=== PATIENT | male | born 1990 | race Caucasian/White ===

== ENCOUNTER 2020-08-23 13:18 | Emergency (ER) | payer MEDICAID ==
[~2020-08-23] VITALS: Ht 152 cm; Wt 95.0 kg
[~2020-08-23 13:18] MED LIST: AMOX500T2 PO; ARPZ10T; BENZ100C18 PO; BNZT1T PO; CHLO1TAB79 PO; DIVA500T7 PO; DOCU-250 PO; DVL500TEC PO; ESCT10T; FLUP10TA PO; HALO100V4 IM; HYDR-4226 PO; LEVO500T69 PO; LITH300C PO; MECL25TA56 PO; MELA1TAB10 PO; ONDA8TAB9 PO; PRD20T PO; QUET300T44 PO; QUET50TA21 PO; RSP2T PO; RSP50S IM; RT-ALBUINH IH; SULF1TAB35 PO; TRZ50T; ZLP10T PO
--- NOTE | 2020-08-23 13:53 | ED General ---
General Chief Complaint: General Problems/Pain Stated Complaint: DIZZINESS,COUGH Nursing Triage Note: PT ARRIVES TO THE ER WITH C/O COUGH, SORE THROAT AND DIZZINESS. NO FEVER Nursing Sepsis Screen: No Definite Risk Source of Information: Patient Exam Limitations: No Limitations History of Present Illness Date Seen by Provider: Aug 23, 2020 Time Seen by Provider: 13:45 Initial Comments Patient is a 30-year-old male who presents to the emergency room today with a chief complaint of cough, mild dizziness, congestion. Symptoms have been going on for about 2 weeks. Patient states that he has not taken any medications for his symptoms. He does smoke 1 cigarette a day. He denies any loss of taste or smell. His cough is nonproductive. He is not having a runny nose or sore throat. No nausea vomiting no complaints. The patient states that the reason he came to the emergency room today is because he got a ride to the ER today by his grandmother. All other ROS reviewed and negative except as stated Timing/Duration: Other (2 week) Severity: Mild Allergies and Home Medications Allergies Coded Allergies: NKANo Known Allergies (Verified Allergy, Unknown, 10/22/06) No Known Drug Allergies (Unverified , 05/05/09) Home Medications Albuterol Sulfate 8.5 Gm Hfa.aer.ad, 8.5 GM IH Q4H PRN for WHEEZING Prescribed by: DEL HAMMER on 10/17/15 1245 Amoxicillin 500 Mg Tablet, 500 MG PO TID Do not fill before 10/19/14 and only if symptoms worsen Prescribed by: DEL HAMMER on 10/17/15 1245 Benztropine Mesylate 1 Mg Tab, 1 MG PO DAILY, (Reported) Chlorphen/Phenyleph/Ibuprofen 1 Each Tablet, 1 EACH PO Q4H PRN for CONGESTION Prescribed by: DEL HAMMER on 10/17/15 1245 Docusate Sodium 100 Mg Capsule, 100 MG PO DAILY, (Reported) Haloperidol Decanoate 100 Mg/1 Ml Vial, 100 MG IM EVERY 28 DAYS, (Reported) Hydrocodone/Acetaminophen 1 Each Tablet, 1 EACH PO Q4H PRN for PAIN Do not fill unless Bactrim is also filled Prescribed by: DEL HAMMER on 11/01/15 1742 [place] Carbonate 300 Mg Capsule, 600 MG PO BID, (Reported) TAKES 2 (300MG) CAPSULES Melatonin/Pyridoxine 1 Each Tablet, 6 MG PO HS, (Reported) TAKES 2 (3MG) TABLETS Ondansetron 8 Mg Tab.rapdis, 8 MG PO Q6H PRN for NAUSEA/VOMITING Prescribed by: DEL HAMMER on 12/19/15 1159 Quetiapine Fumarate 300 Mg Tablet, 600 MG PO HS, (Reported) TAKES 2 (300MG) TABLETS Sulfamethoxazole/Trimethoprim 1 Each Tablet, 1 EACH PO BID Prescribed by: DEL HAMMER on 11/01/15 0382 Patient Home Medication List Home Medication List Reviewed: Yes (IVC) Review of Systems Review of Systems Constitutional: no symptoms reported ( people that were slowing movies in the) EENTM: nose congestion Respiratory: cough; No hemoptysis, No phlegm, No short of breath, No stridor, No wheezing Cardiovascular: no symptoms reported Gastrointestinal: no symptoms reported Genitourinary: no symptoms reported Musculoskeletal: no symptoms reported Skin: no symptoms reported Psychiatric/Neurological: No Symptoms Reported All Other Systems Reviewed Negative Unless Noted: Yes Past Djdgces-Ogmjei-Fawyst Hx Patient Social History Recent Foreign Travel: No Contact w/Someone Who Travel: No Recent Infectious Disease Expo: No Recent Hopitalizations: No Immunizations Up To Date Tetanus Booster (TDap): Unknown Seasonal Allergies Seasonal Allergies: No Past Medical History Currently Using CPAP: No Currently Using BIPAP: No Hypertension Reproductive Disorders: No Hepatitis Anxiety, Bipolar, Schizophrenia, Depression Adverse Reaction/Blood Tranf: No Family Medical History Patient reports no known family medical history. Cancer, Psychiatric Problems Physical Exam Vital Signs Vital Signs - First Documented 08/23/20 13:36 Temp 36.4 Pulse 87 Resp 18 B/P (MAP) 146/104 (118) Pulse Ox 97 Capillary Refill : Less Than 3 Seconds Height, Weight, BMI Height: 5'10" Weight: 170lbs. oz. 77.380498bo; 41.00 BMI Method:Estimated General Appearance: No Apparent Distress, WD/WN Eyes: Bilateral Eye Normal Inspection HEENT: PERRL/EOMI, Normal ENT Inspection, Pharynx Normal; No Pharyngeal Erythema; TM Abnormal (L), TM Abnormal (R) (Serous effusions noted behind both TMs); No Tonsillar Exudate, No Tonsillar Enlargement Neck: Full Range of Motion, Normal Inspection, Non Tender, Supple Respiratory: Lungs Clear, Normal Breath Sounds, No Accessory Muscle Use, No Respiratory Distress Cardiovascular: Regular Rate, Rhythm, No Edema, No Murmur Gastrointestinal: Normal Bowel Sounds, Non Tender, Soft Extremity: Normal Inspection Neurologic/Psychiatric: Oriented x3, No Motor/Sensory Deficits, Normal Mood/Affect, Other (Flat affect) Skin: Normal Color, Warm/Dry Progress/Results/Core Measures Suspected Sepsis Recent Fever Within 48 Hours: No Infection Criteria Present: None New/Unexplained Altered Menta: No Sepsis Screen: No Definite Risk SIRS Temperature: Pulse: 87 Respiratory Rate: 18 Blood Pressure 146 /104 Mean: 118 Results/Orders Vital Signs/I&O 08/23/20 13:36 Temp 36.4 Pulse 87 Resp 18 B/P (MAP) 146/104 (118) Pulse Ox 97 Capillary Refill : Less Than 3 Seconds Blood Pressure Mean: 118 Progress Note : Time: 13:53 Progress Note 30-year-old male presents to the emergency department today with a chief complaint of congestion, cough and some dizziness. Evaluation today includes a physical exam. Patient's exam is benign and notable only for serous effusions behind both TMs. No erythema, no fever, no productive cough no respiratory distress no other complaints that would be concerning for systemic illness. Patient has no clinical or objective findings to warrant testing here in the emergency department. He is medically stable. I have advised the patient he can take [id number] cough and cold remedies for his symptoms. He verbalized understanding. All questions are sought and answered and he is stable for discharge. Departure Impression Primary Impression: Viral syndrome Disposition: 01 HOME, SELF-CARE Condition: Stable Departure-Patient Inst. Decision time for Depature: 13:53 Referrals: RICARDO THOMAS MD (PCP/Family) Primary Care Physician Patient Instructions: Cough, Runny Nose, and the Common Cold (DC) Add. Discharge Instructions: Use uoia-miy-rtzezce Robitussin, Robitussin-DM as needed for cough and congestion. Please call your primary care doctor's office for a follow-up appointment as needed. Return to the emergency room for any worsening symptoms, high fever, shortness of breath or other emergent concerns. All discharge instructions reviewed with patient and/or family. Voiced understanding. AGUSTIN PENNY MD Aug 23, 2020 13:53
[2020-08-23 14:02] VITALS: BP 146/104
== END 2020-08-23 14:03 | disposition home or self-care (01) ==
LOC: EDUNIT# 13:18 → ER 13:19
DX: B34.9 Viral infection, unspecified (principal); R42 Dizziness and giddiness; I10 Essential (primary) hypertension; F41.9 Anxiety disorder, unspecified; F31.9 Bipolar disorder, unspecified; F20.9 Schizophrenia, unspecified; Z79.899 Other long term (current) drug therapy
CPT/HCPCS: 99281

== ENCOUNTER 2021-06-13 17:24 | Observation (INO) | payer MEDICAID ==
[~2021-06-13] VITALS: Ht 177.8 cm; Wt 95.0 kg
[~2021-06-13 17:24] MED LIST changes: +QUET300T19 PO; -QUET300T44 PO; -SULF1TAB35 PO; +SULF1TAB38 PO
[2021-06-13] MEDS ORDERED: LACTATED RINGERS 1,000 ML IV ONE (17:30)
--- NOTE | 2021-06-13 17:36 | ED General ---
General Stated Complaint: LETHARGY Source of Information: EMS, Old Records (ALL PMH IS FROM OLD CHART) Exam Limitations: Other (PT LETHARGIC, CONFUSED AND APPEARS TO BE UNDER THE INFLUENCE OF SOME SUBSTANCE/S) History of Present Illness Date Seen by Provider: Jun 13, 2021 Time Seen by Provider: 17:29 Initial Comments PT ARRIVES VIA EMS FROM HOME MOM CALLED EMS FOR PT BEING LETHARGIC MOM REPORTS THAT PT USED "ICE" LAST PM--PT WITH RECENT TRACK RIVERA IN LEFT AC SPACE MOM DID NOT PROVIDE ANY OTHER INFORMATION TO EMS PT IS CONFUSED, VERY DROWSY, SLURRED SPEECH, VERY UNSTEADY ON STANDING WITH ASSIST UNABLE TO OBTAIN ANY RELIABLE INFORMATION FROM PT PT IS TALKING SOME ON ARRIVAL, BUT FALLS ASLEEP MID -SENTENCE PCP: DR. THOMAS Allergies and Home Medications Allergies Coded Allergies: NKANo Known Allergies (Verified Allergy, Unknown, 10/22/06) No Known Drug Allergies (Unverified , 05/05/09) Home Medications Albuterol Sulfate 8.5 Gm Hfa.aer.ad, 8.5 GM IH Q4H PRN for WHEEZING Prescribed by: DEL HAMMER on 10/17/15 1245 Amoxicillin 500 Mg Tablet, 500 MG PO TID Do not fill before 10/19/14 and only if symptoms worsen Prescribed by: DEL HAMMER on 10/17/15 1245 Benztropine Mesylate 1 Mg Tab, 1 MG PO DAILY, (Reported) Chlorphen/Phenyleph/Ibuprofen 1 Each Tablet, 1 EACH PO Q4H PRN for CONGESTION Prescribed by: DEL HAMMER on 10/17/15 1245 Docusate Sodium 100 Mg Capsule, 100 MG PO DAILY, (Reported) Haloperidol Decanoate 100 Mg/1 Ml Vial, 100 MG IM EVERY 28 DAYS, (Reported) Hydrocodone/Acetaminophen 1 Each Tablet, 1 EACH PO Q4H PRN for PAIN Do not fill unless Bactrim is also filled Prescribed by: DEL HAMMER on 11/01/15 1742 [place] Carbonate 300 Mg Capsule, 600 MG PO BID, (Reported) TAKES 2 (300MG) CAPSULES Melatonin/Pyridoxine 1 Each Tablet, 6 MG PO HS, (Reported) TAKES 2 (3MG) TABLETS Ondansetron 8 Mg Tab.rapdis, 8 MG PO Q6H PRN for NAUSEA/VOMITING Prescribed by: DEL HAMMER on 12/19/15 1159 Quetiapine Fumarate 300 Mg Tablet, 600 MG PO HS, (Reported) TAKES 2 (300MG) TABLETS Sulfamethoxazole/Trimethoprim 1 Each Tablet, 1 EACH PO BID Prescribed by: DEL HAMMER on 11/01/15 4139 Patient Home Medication List Home Medication List Reviewed: Yes Review of Systems Review of Systems Constitutional: other (UNABLE TO OBTAIN) Past Nmyeqxp-Aodluk-Tacnvc Hx Patient Social History Tobacco Use?: Yes Tobacco type used: Cigarettes Substance use?: Yes Substance type: Amphetamines, Methamphetamine Additional substance use comme: HAS TESTED + FOR COCAINE, AMPHETAMINES, B ANJELICA'S, THC: "ICE"; + IV USE Alcohol Use?: Yes Immunizations Up To Date Tetanus Booster (TDap): Unknown PED Vaccines UTD: Yes Seasonal Allergies Seasonal Allergies: No Past Medical History Surgeries: Yes (CHIN REPAIR) Respiratory: No Currently Using CPAP: No Currently Using BIPAP: No Cardiac: Yes Hypertension Neurological: No Reproductive Disorders: No Gastrointestinal: Yes Hepatitis Musculoskeletal: No Endocrine: No Cancer: No Psychosocial: Yes (h/o psych disorders- refuses questioning; SUBSTANCE ABUSE) Anxiety, Bipolar, Schizophrenia, Depression Integumentary: No Blood Disorders: Yes (HEPATITIS) Adverse Reaction/Blood Tranf: No Family Medical History Patient reports no known family medical history. Cancer, Psychiatric Problems Physical Exam Vital Signs Vital Signs - First Documented 06/13/21 17:28 Temp 36.3 Pulse 89 Resp 18 B/P (MAP) 152/87 (108) Pulse Ox 96 O2 Delivery Room Air Capillary Refill : Height, Weight, BMI Height: 5'10" Weight: 170lbs. oz. 77.172037xo; 41.00 BMI Method:Estimated General Appearance: Other (VERY DROWSY, SLURRED SPEECH, UNSTEADY ON STANDING WITH ASSIST. FALLS ASLEEP MID SENTENCE. NO SNORING. MALODOROUS) HEENT: PERRL/EOMI, Other (POOR ORAL HYGIENE) Neck: Normal Inspection Respiratory: Normal Breath Sounds, No Accessory Muscle Use, No Respiratory Distress Cardiovascular: Regular Rate, Rhythm, No Murmur Gastrointestinal: Non Tender, Soft Extremity: No Pedal Edema Neurologic/Psychiatric: No Motor/Sensory Deficits, Other (MENTATION ABOVE; CONFUSED TO TIME, PLACE, SITUATION. KNOWS NAME) Skin: Normal Color, Warm/Dry Progress/Results/Core Measures Suspected Sepsis SIRS Temperature: Pulse: Respiratory Rate: Laboratory Tests 06/13/21 17:36: White Blood Count 9.5 Blood Pressure / Mean: Laboratory Tests 06/13/21 17:36: Creatinine 0.94, Platelet Count 388, Total Bilirubin 0.5 Results/Orders Lab Results Laboratory Tests Test 06/13/21 17:36 06/13/21 17:37 06/13/21 17:38 Range/Units White Blood Count 9.5 4.3-11.0 10^3/uL Red Blood Count 5.84 H 4.30-5.52 10^6/uL Hemoglobin 17.3 13.3-17.7 g/dL Hematocrit 51 40-54 % Mean Corpuscular Volume 88 80-99 fL Mean Corpuscular Hemoglobin 30 25-34 pg Mean Corpuscular Hemoglobin Concent 34 32-36 g/dL Red Cell Distribution Width 13.0 10.0-14.5 % Platelet Count 388 130-400 10^3/uL Mean Platelet Volume 9.0 9.0-12.2 fL Immature Granulocyte % (Auto) 1 % Neutrophils (%) (Auto) 76 H 42-75 % Lymphocytes (%) (Auto) 15 12-44 % Monocytes (%) (Auto) 7 0-12 % Eosinophils (%) (Auto) 1 0-10 % Basophils (%) (Auto) 1 0-10 % Neutrophils # (Auto) 7.3 1.8-7.8 10^3/uL Lymphocytes # (Auto) 1.5 1.0-4.0 10^3/uL Monocytes # (Auto) 0.7 0.0-1.0 10^3/uL Eosinophils # (Auto) 0.1 0.0-0.3 10^3/uL Basophils # (Auto) 0.1 0.0-0.1 10^3/uL Immature Granulocyte # (Auto) 0.1 0.0-0.1 10^3/uL Urine Color YELLOW Urine Clarity CLEAR Urine pH 6.0 5-9 Urine Specific [place] 1.020 1.016-1.022 Urine Protein NEGATIVE NEGATIVE Urine Glucose (UA) NEGATIVE NEGATIVE Urine Ketones TRACE H NEGATIVE Urine Nitrite NEGATIVE NEGATIVE Urine Bilirubin NEGATIVE NEGATIVE Urine Urobilinogen 0.2 < = 1.0 MG/DL Urine Leukocyte Esterase NEGATIVE NEGATIVE Urine RBC (Auto) NEGATIVE NEGATIVE Urine RBC NONE /HPF Urine WBC 2-5 /HPF Urine Crystals PRESENT H /LPF Urine Amorphous Sediment RARE JORGE URATES H /LPF Urine Bacteria TRACE /HPF Urine Casts PRESENT /LPF Urine Hyaline Casts 25-50 H /LPF Urine Mucus MODERATE H /LPF Urine Culture Indicated NO Sodium Level 136 135-145 MMOL/L Potassium Level 3.5 L 3.6-5.0 MMOL/L Chloride Level 100 98-107 MMOL/L Carbon Dioxide Level 24 21-32 MMOL/L Anion Gap 12 5-14 MMOL/L Blood Urea Nitrogen 5 L 7-18 MG/DL Creatinine 0.94 0.60-1.30 MG/DL Estimat Glomerular Filtration Rate 94 BUN/Creatinine Ratio 5 Glucose Level 148 H 70-105 MG/DL Calcium Level 9.5 8.5-10.1 MG/DL Corrected Calcium 9.6 8.5-10.1 MG/DL Magnesium Level 2.0 1.6-2.4 MG/DL Total Bilirubin 0.5 0.1-1.0 MG/DL Aspartate Amino Transf (AST/SGOT) 18 5-34 U/L Alanine Aminotransferase (ALT/SGPT) 23 0-55 U/L Alkaline Phosphatase 116 40-136 U/L Total Creatine Kinase 118 30-200 U/L Creatine Kinase MB 2.1 <6.6 NG/ML Myoglobin 49.0 10.0-92.0 NG/ML Total Protein 6.8 6.4-8.2 GM/DL Albumin 3.9 3.2-4.5 GM/DL Procalcitonin 0.02 <0.10 NG/ML Urine Opiates Screen NEGATIVE NEGATIVE Urine Oxycodone Screen NEGATIVE NEGATIVE Urine Methadone Screen NEGATIVE NEGATIVE Urine Propoxyphene Screen NEGATIVE NEGATIVE Acetaminophen Level < 10 L 10-30 UG/ML Urine Barbiturates Screen NEGATIVE NEGATIVE Ur Tricyclic Antidepressants Screen NEGATIVE NEGATIVE Urine Phencyclidine Screen NEGATIVE NEGATIVE Urine Amphetamines Screen POSITIVE H NEGATIVE Urine Methamphetamines Screen POSITIVE H NEGATIVE Urine Benzodiazepines Screen NEGATIVE NEGATIVE Urine Cocaine Screen NEGATIVE NEGATIVE Urine Cannabinoids Screen NEGATIVE NEGATIVE Serum Alcohol < 10 <10 MG/DL Glucometer 78 70-110 MG/DL Influenza Type A (RT-PCR) Not Detected Not Detecte Influenza Type B (RT-PCR) Not Detected Not Detecte SARS-CoV-2 RNA (RT-PCR) Not Detected Not Detecte My Orders Orders - COLBY WALLER DO Accucheck Stat ONCE (06/13/21 17:27) Ed Iv/Invasive Line Start (06/13/21 17:27) Ekg Tracing (06/13/21:27) Monitor-Rhythm Ecg Trace Only (06/13/21:27) Acetaminophen (06/13/21 17:27) Alcohol (06/13/21 17:27) Cbc With Automated Diff (06/13/21:) Comprehensive Metabolic Panel (06/13/21:) Creatine Kinase (06/13/21:) Creatine Kinase Mb (06/13/21 17:27) Drug Screen Stat (Urine) (06/13/21:) Magnesium (06/13/21:) Ua Culture If Indicated (06/13/21:) Myoglobin Serum (06/13/21:27) Ed Iv/Invasive Line Start (06/13/21 17:27) Lactated Ringers (Lr 1000 Ml Iv Solution (06/13/21 17:30) Covid 19 Inhouse Test (06/13/21:27) Straight Cath For Spec.-Adult (06/13/21 17:27) Influenza A And B By Pcr (06/13/21 17:27) Isolation Central Supply Req (06/13/21 17:27) Naloxone Injection (Narcan Injection) (06/13/21 17:45) Ct Head Wo-R/O Stroke (06/13/21 17:42) Chest 1 View, Ap/Pa Only (06/13/21 17:42) Lactic Acid Analyzer (06/13/21 18:13) Procalcitonin (Pct) (06/13/21 18:13) Blood Culture (06/13/21 18:13) Ceftriaxone (Rocephin) (06/13/21 18:15) Azithromycin Injection (Zithromax Inject (06/13/21 18:15) Medications Given in ED Current Medications Medications Dose Ordered Sig/Chris Route Start Time Stop Time Status Last Admin Dose Admin Azithromycin 500 mg/Sodium Chloride 255 ml @ 250 mls/hr ONCE ONCE IV 06/13/21 18:15 06/13/21 19:16 DC 06/13/21 19:14 250 MLS/HR Ceftriaxone Sodium 1000 mg/ Sterile Water 10 ml @ 200 mls/hr ONCE ONCE IV 06/13/21 18:15 06/13/21 18:17 DC 06/13/21 19:02 200 MLS/HR Lactated Ringer's 1,000 ml @ 0 mls/hr Q0M ONCE IV 06/13/21 17:30 06/13/21 17:31 DC 06/13/21 17:38 1,000 MLS/HR Naloxone HCl 2 mg ONCE ONCE IV 06/13/21 17:45 06/13/21 17:46 DC 06/13/21 17:38 2 MG Vital Signs/I&O 06/13/21 17:28 Temp 36.3 Pulse 89 Resp 18 B/P (MAP) 152/87 (108) Pulse Ox 96 O2 Delivery Room Air 06/14/21 00:00 Intake Total 0 ml Balance 0 ml Capillary Refill : Progress Note : Progress Note GIVEN NARCAN ON ARRIVAL WITHOUT IMPROVEMENT IN MENTATION PT SLEPT FOR MOST OF ER STAY, EASILY AWAKENS, THEN QUICKLY GOES BACK TO SLEEP. O2 SATS 99% ON ROOM AIR WHILE SLEEPING, NO SNORING PT MAINTAINING O2 SATS AND AIRWAY VITALS STABLE NO DETERIORATION IN PT'S CONDITION DURING ER STAY ECG Initial ECG Impression Date: Jun 13, 2021 Initial ECG Impression Time: 17:40 Initial ECG Rate: 88 Initial ECG Rhythm: Normal Sinus Diagnostic Imaging Comments CT HEAD--NO ACUTE PROCESS, PER RADIOLOGIST VIA PHONE AT 1810 CXR--QUESTION LEFT PERIHILAR INFILTRATE, PER RADIOLOGIST REPORT AT 1810 Reviewed: Reviewed by Me Departure Communication (Admissions) 1834--SPOKE WITH DR. HEREDIA, HOSPITALIST, ACCEPTS PT FOR ADMIT Impression Primary Impression: Altered mental status Additional Impressions: Illicit drug use Pneumonia Disposition: ADMITTED INPATIENT Condition: Stable Admissions Decision to Admit Reason: Admit from ER (General) Decision to Admit/Date: Jun 13, 2021 Time/Decision to Admit Time: 18:35 Departure-Patient Inst. Referrals: RICARDO THOMAS MD (PCP/Family) Primary Care Physician COLBY WALLER DO Jun 13, 2021 17:36
[2021-06-13 17:41] LABS: BASOPHILS # (AUTO) 0.1 10^3/uL (0.0-0.1); BASOPHILS % (AUTO) 1 % (0-10); BILIRUBIN,URINE NEGATIVE (NEGATIVE); CLARITY,URINE CLEAR; COLOR,URINE YELLOW; EOSINOPHILS # (AUTO) 0.1 10^3/uL (0.0-0.3); EOSINOPHILS % (AUTO) 1 % (0-10); GLUCOSE, URINE (UA) NEGATIVE (NEGATIVE); HEMATOCRIT 51 % (40-54); HEMOGLOBIN 17.3 g/dL (13.3-17.7); KETONES,URINE TRACE (NEGATIVE); LEUKOCYTE ESTERASE ,URINE NEGATIVE (NEGATIVE); LYMPHOCYTES # (AUTO) 1.5 10^3/uL (1.0-4.0); LYMPHOCYTES % (AUTO) 15 % (12-44); MEAN CORPUSCULAR HEMOGLOBIN 30 pg (25-34); MEAN CORPUSCULAR HGB CONC 34 g/dL (32-36); MEAN CORPUSCULAR VOLUME 88 fL (80-99); MONOCYTES # (AUTO) 0.7 10^3/uL (0.0-1.0); MONOCYTES % (AUTO) 7 % (0-12); NEUTROPHILS # (AUTO) 7.3 10^3/uL (1.8-7.8); NEUTROPHILS % (AUTO) 76 % (42-75); NITRITE,URINE NEGATIVE (NEGATIVE); PLATELET COUNT 388 10^3/uL (130-400); PROTEIN,URINE NEGATIVE (NEGATIVE); WHITE BLOOD COUNT 9.5 10^3/uL (4.3-11.0)
[2021-06-13] MEDS ORDERED: NALOXONE 2 MG/2 ML (NARCAN) SYR IV ONE (17:45)
[2021-06-13 17:51] LABS: ALBUMIN 3.9 GM/DL (3.2-4.5); CHLORIDE 100 MMOL/L (98-107); POTASSIUM 3.5 MMOL/L (3.6-5.0); SODIUM 136 MMOL/L (135-145)
[2021-06-13 17:53] LABS: CALCIUM 9.5 MG/DL (8.5-10.1)
[2021-06-13 17:54] LABS: GLUCOSE 148 MG/DL (70-105); TOTAL PROTEIN 6.8 GM/DL (6.4-8.2)
[2021-06-13 17:55] LABS: BILIRUBIN,TOTAL 0.5 MG/DL (0.1-1.0); CARBON DIOXIDE 24 MMOL/L (21-32)
[2021-06-13 17:57] LABS: ALKALINE PHOSPHATASE 116 U/L (40-136); CREATININE SERUM 0.94 MG/DL (0.60-1.30); GFR ESTIMATED 94
[2021-06-13 17:58] LABS: ACETAMINOPHEN < 10 UG/ML (10-30); BUN/CREATININE RATIO 5
[2021-06-13 18:00] LABS: ALANINE AMINOTRANSFERASE 23 U/L (0-55)
[2021-06-13 18:01] LABS: CREATINE KINASE 118 U/L (30-200)
[2021-06-13 18:07] LABS: CREATINE KINASE MB 2.1 NG/ML (<6.6)
--- NOTE | 2021-06-13 18:08 | Diagnostic Imaging Report ---
INDICATION: Substance abuse. EXAMINATION: Chest at 06/13/2021 FINDINGS: There are low lung volumes. Left perihilar increased airspace opacities could be due to mild infiltrate. Remaining lungs clear. No effusions or pneumothorax. Heart unremarkable. No acute osseous abnormality. IMPRESSION: 1. Question of left perihilar infiltrate. Dictated by: Dictated on workstation # [id number]
[2021-06-13] MEDS ORDERED: cefTRIAXone 1,000 MG in WATER (STERILE) FOR INJECTION 10 ML IV ONE (18:15)
[2021-06-13] MEDS ORDERED: AZITHROMYCIN INJECTION 500 MG in NS (IVPB) 250 ML IV ONE (18:15)
[2021-06-13 18:18] LABS: BACTERIA,URINE TRACE /HPF; HYALINE CASTS, URINE 25-50 /LPF
[2021-06-13 18:19] LABS: AMORPHOUS SEDIMENT,UR RARE AMOR URATES /LPF
[2021-06-13 18:24] LABS: AMPHETAMINE SCREEN, URINE POSITIVE (NEGATIVE); BARBITURATE SCREEN URINE NEGATIVE (NEGATIVE); BENZODIAZEPINES SCREEN URINE NEGATIVE (NEGATIVE); CANNABINOID SCREEN, URINE NEGATIVE (NEGATIVE); COCAINE SCREEN URINE NEGATIVE (NEGATIVE); METHADONE STAT NEGATIVE (NEGATIVE); METHAMPHETAMINE SCREEN URINE S POSITIVE (NEGATIVE); OPIATE SCREEN URINE NEGATIVE (NEGATIVE); OXYCODONE STAT NEGATIVE (NEGATIVE); PROPOXYPHENE STAT NEGATIVE (NEGATIVE); TRICYCLIC ANTIDEPRESSANTS SCRE NEGATIVE (NEGATIVE)
--- NOTE | 2021-06-13 18:24 | Diagnostic Imaging Report ---
EXAMINATION: CT brain without contrast from 06/13/2021. TECHNIQUE: Multiple contiguous axial images were obtained through the brain without the use of intravenous contrast. Auto Exposure Controls were utilized during the CT exam to meet ALARA standards for radiation dose reduction. INDICATION: Neurological deficits. Possible overdose. FINDINGS: Axial imaging of the brain without contrast. There is no hemorrhage or infarct. No mass, mass effect, or midline shift. No hydrocephalus. Paranasal sinuses and mastoid air cells are clear. IMPRESSION: 1. No acute intracranial process. Findings were called to Dr. Polk by Dr. Maxwell on 06/13/2021 at 6:08 p.m. Dictated by: Dictated on workstation # [id number]
[2021-06-13 19:50] VITALS: BP 93/62
[2021-06-13] MEDS ORDERED: D5 1/2 NS W/KCL 20 MEQ/L 1,000 ML IV SCH (20:00)
[2021-06-13] MEDS ORDERED: LORazepam INJ 2 MG/ML (ATIVAN) VIAL IVP PRN (20:00)
[2021-06-13] MEDS ORDERED: ONDANSETRON 4 MG/2 ML (SDV) Z0FRAN IVP PRN (20:00)
[2021-06-13] MEDS ORDERED: ACETAMINOPHEN 500 MG TAB (TYLENOL) PO PRN (20:00)
[2021-06-13 20:56] VITALS: BP 152/87
[2021-06-13 21:03] LABS: TSH (THYROID ANALYZER) 0.38 UIU/ML (0.35-4.94); VALPROIC ACID 31.5 UG/ML (50.0-100.0)
[2021-06-13] MEDS ORDERED: LOPERAMIDE 2 MG (IMODIUM) TABLET PO PRN (21:15)
[2021-06-13] MEDS ORDERED: diphenhydrAMINE 25 MG TAB (BENADRYL) PO PRN (21:15)
[2021-06-13] MEDS ORDERED: HYDROcodone/APAP 5 MG/325 MG (LORTAB) TAB PO PRN (21:15)
[2021-06-13] MEDS ORDERED: RT-ALBUTEROL SULF 2.5 MG/3 ML PRE-MIX VIAL INH PRN (21:15)
[2021-06-13] MEDS ORDERED: ENOXAPARIN 40 MG/0.4 ML (LOVENOX) SYR SC SCH (21:15)
[2021-06-13] MEDS ORDERED: CALCIUM CARBONATE 500 MG (TUMS) TAB.CHEW PO PRN (21:15)
[2021-06-13] MEDS ORDERED: DOCUSATE SODIUM 100 MG (COLACE) CAP PO PRN (21:15)
[2021-06-13] MEDS ORDERED: MELATONIN 3 MG TABLET PO PRN (21:15)
[2021-06-13] MEDS ORDERED: POTASSIUM CHLORIDE INJ 10 MEQ in NS IV 1000 ML 1,000 ML IV SCH (21:15)
[2021-06-13] MEDS ORDERED: morphine INJ 4 MG/ML 1 ML (VIAL/SYRINGE) IVP PRN (21:45)
[2021-06-13] MEDS: NS W/KCL 20 MEQ/L 1,000 ML IV SCH (22:17)
[2021-06-13 23:14] VITALS: BP 112/68
[2021-06-14 04:00] VITALS: BP 129/83
[2021-06-14] MEDS: NS W/KCL 20 MEQ/L 1,000 ML IV SCH ×2 (04:15→10:48)
[2021-06-14 04:57] LABS: BASOPHILS % (AUTO) 1 % (0-10); EOSINOPHILS # (AUTO) 0.1 10^3/uL (0.0-0.3); EOSINOPHILS % (AUTO) 1 % (0-10); HEMATOCRIT 45 % (40-54); HEMOGLOBIN 15.2 g/dL (13.3-17.7); LYMPHOCYTES # (AUTO) 2.4 10^3/uL (1.0-4.0); LYMPHOCYTES % (AUTO) 28 % (12-44); MEAN CORPUSCULAR HEMOGLOBIN 30 pg (25-34); MEAN CORPUSCULAR HGB CONC 34 g/dL (32-36); MEAN CORPUSCULAR VOLUME 89 fL (80-99); MEAN PLATELET VOLUME 9.5 fL (9.0-12.2); MONOCYTES # (AUTO) 0.9 10^3/uL (0.0-1.0); MONOCYTES % (AUTO) 10 % (0-12); NEUTROPHILS # (AUTO) 5.3 10^3/uL (1.8-7.8); NEUTROPHILS % (AUTO) 61 % (42-75); PLATELET COUNT 361 10^3/uL (130-400); WHITE BLOOD COUNT 8.7 10^3/uL (4.3-11.0)
[2021-06-14 05:24] LABS: CALCIUM 9.2 MG/DL (8.5-10.1); CREATININE SERUM 0.72 MG/DL (0.60-1.30); POTASSIUM 3.9 MMOL/L (3.6-5.0)
[2021-06-14 07:58] VITALS: BP 132/84
[2021-06-14] MEDS ORDERED: SENNA W/DOCUSATE (SENOKOT S) TABLET PO SCH (09:00)
[2021-06-14] MEDS ORDERED: LEVO750T39 PO (11:31)
[2021-06-14 11:58] VITALS: BP 133/88
--- NOTE | 2021-06-14 12:51 | Discharge Summary ---
Discharge Summary Hospital Course Problems/Dx: (1) Methamphetamine intoxication Status: Acute (2) PNA (pneumonia) Status: Acute Qualifiers: Hospital Course Date of Admission: Jun 13, 2021 at 18:35 Admission Diagnosis: Altered mental status Family Physician/Provider: Loretta Thomas MD Date of Discharge: 06/14/21 Discharge Diagnosis: Acute methamphetamine intoxication, pneumonia Hospital Course: Sixto Little is a 30 year old male who presented with altered mental status and was admitted with acute methamphetamine intoxication and pneumonia. He was monitored and improved after his acute intoxication resolved. He still had a cough and was given a course of Levaquin for pneumonia. He was negative for covid and flu. He should follow up with his PCP in about a week. He should stop using methamphetamines. Labs and Pending Lab Test: Laboratory Tests 06/13/21 17:36: White Blood Count 9.5, Red Blood Count 5.84H, Hemoglobin 17.3, Hematocrit 51, Mean Corpuscular Volume 88, Mean Corpuscular Hemoglobin 30, Mean Corpuscular Hemoglobin Concent 34, Red Cell Distribution Width 13.0, Platelet Count 388, Mean Platelet Volume 9.0, Immature Granulocyte % (Auto) 1, Neutrophils (%) (Auto) 76H, Lymphocytes (%) (Auto) 15, Monocytes (%) (Auto) 7, Eosinophils (%) ( Auto) 1, Basophils (%) (Auto) 1, Neutrophils # (Auto) 7.3, Lymphocytes # (Auto) 1.5, Monocytes # (Auto) 0.7, Eosinophils # (Auto) 0.1, Basophils # (Auto) 0.1, Immature Granulocyte # (Auto) 0.1, Urine Color YELLOW, Urine Clarity CLEAR, Urine pH 6.0, Urine Specific [place] 1.020, Urine Protein NEGATIVE, Urine Glucose (UA) NEGATIVE, Urine Ketones TRACEH, Urine Nitrite NEGATIVE, Urine Bilirubin NEGATIVE, Urine Urobilinogen 0.2, Urine Leukocyte Esterase NEGATIVE, Urine RBC (Auto) NEGATIVE, Urine RBC NONE, Urine WBC 2-5, Urine Crystals PRESENTH, Urine Amorphous Sediment RARE JORGE URATESH, Urine Bacteria TRACE, Urine Casts PRESENT, Urine Hyaline Casts 25-50H, Urine Mucus MODERATEH, Urine Culture Indicated NO, Sodium Level 136, Potassium Level 3.5L, Chloride Level 100 , Carbon Dioxide Level 24, Anion Gap 12, Blood Urea Nitrogen 5L, Creatinine 0.94, Estimat Glomerular Filtration Rate 94, BUN/Creatinine Ratio 5, Glucose Level 148H, Calcium Level 9.5, Corrected Calcium 9.6, Magnesium Level 2.0, Total Bilirubin 0.5, Aspartate Amino Transf (AST/SGOT) 18, Alanine Aminotransferase (ALT/SGPT) 23, Alkaline Phosphatase 116, Total Creatine Kinase 118, Creatine Kinase MB 2.1, Myoglobin 49.0, Total Protein 6.8, Albumin 3.9, Procalcitonin 0.02, Urine Opiates Screen NEGATIVE, Urine Oxycodone Screen NEGATIVE, Urine Methadone Screen NEGATIVE, Urine Propoxyphene Screen NEGATIVE, Acetaminophen Level < 10L, Urine Barbiturates Screen NEGATIVE, Ur Tricyclic Antidepressants Screen NEGATIVE, Urine Phencyclidine Screen NEGATIVE, Urine Amphetamines Screen POSITIVEH, Urine Methamphetamines Screen POSITIVEH, Urine Benzodiazepines Screen NEGATIVE, Urine Cocaine Screen NEGATIVE, Urine Cannabinoids Screen NEGATIVE, Serum Alcohol < 10 06/13/21 17:37: Glucometer 78 06/13/21 17:38: Influenza Type A (RT-PCR) Not Detected, Influenza Type B (RT-PCR) Not Detected, SARS-CoV-2 RNA (RT-PCR) Not Detected 06/13/21 19:03: Lactic Acid Level 3.63*H 06/13/21 20:17: TSH [place] Testing 0.38, Valproic Acid (Depakene) Level 31.5L, [place] Level [Pending] 06/13/21 22:50: Lactic Acid Level 2.22*H 06/14/21 00:50: Lactic Acid Level 1.28 06/14/21 04:25: White Blood Count 8.7, Red Blood Count 5.08, Hemoglobin 15.2, Hematocrit 45, Mean Corpuscular Volume 89, Mean Corpuscular Hemoglobin 30, Mean Corpuscular Hemoglobin Concent 34, Red Cell Distribution Width 13.1, Platelet Count 361, Mean Platelet Volume 9.5, Immature Granulocyte % (Auto) 0, Neutrophils (%) (Auto) 61, Lymphocytes (%) (Auto) 28, Monocytes (%) (Auto) 10, Eosinophils (%) (Auto) 1, Basophils (%) (Auto) 1, Neutrophils # (Auto) 5.3, Lymphocytes # (Auto) 2.4, Monocytes # (Auto) 0.9, Eosinophils # (Auto) 0.1, Basophils # (Auto) 0.0, Immature Granulocyte # (Auto) 0.0, Sodium Level 139, Potassium Level 3.9, Chloride Level 106, Carbon Dioxide Level 24, Anion Gap 9, Blood Urea Nitrogen 3L , Creatinine 0.72, Estimat Glomerular Filtration Rate 127, BUN/Creatinine Ratio 4, Glucose Level 107H, Calcium Level 9.2 Home Meds Active Levofloxacin 750 Mg Tablet 750 Mg PO DAILY 5 Days Zofran Odt (Ondansetron) 8 Mg Tab.rapdis 8 Mg PO Q6H PRN Hydrocodone/Acetaminophen 5 MG/325 MG TAB (Hydrocodone/Acetaminophen) 1 Each Tablet 1 Each PO Q4H PRN Do not fill unless Bactrim is also filled Proair Hfa (Albuterol Sulfate) 8.5 Gm Hfa.aer.ad 8.5 Gm IH Q4H PRN Advil Allergy-Congest Rlf Tab (Chlorphen/Phenyleph/Ibuprofen) 1 Each Tablet 1 Each PO Q4H PRN Reported [place] Carbonate 300 Mg Capsule 600 Mg PO BID TAKES 2 (300MG) CAPSULES Doc-Q-Lace (Docusate Sodium) 100 Mg Capsule 100 Mg PO DAILY Melatonin 3 mg Tablet (Melatonin/Pyridoxine) 1 Each Tablet 6 Mg PO HS TAKES 2 (3MG) TABLETS Haloperidol Decanoate 100 Mg/1 Ml Vial 100 Mg IM EVERY 28 DAYS Quetiapine Fumarate 300 Mg Tablet 600 Mg PO HS TAKES 2 (300MG) TABLETS Cogentin Tablet (Benztropine Mesylate) 1 Mg Tab 1 Mg PO DAILY Assessment/Pt Instructions Stop using methamphetamines. Take medications as prescribed. Follow up with your PCP. Return with worsening symptoms. Discharge Planning: <30 minutes discharge planning Discharge Physical Examination Vital Signs Vital Signs Date Time Temp Pulse Resp B/P (MAP) Pulse Ox O2 Delivery O2 Flow Rate FiO2 06/14/21 11:58 36.9 89 16 133/88 (103) 93 Room Air 06/13/21 20:56 21 General Appearance: No Apparent Distress, Obese HEENT: PERRL/EOMI, Pharynx Normal Respiratory: Lungs Clear, Normal Breath Sounds, No Respiratory Distress Cardiovascular: Regular Rate, Rhythm, No Edema, No Murmur Gastrointestinal: Normal Bowel Sounds, Non Tender, Soft Extremity: Normal Inspection, Non Tender, No Pedal Edema Skin: Normal Color, Warm/Dry Neurologic/Psychiatric: Alert, Oriented x3, Depressed Affect Allergies: Coded Allergies: NKANo Known Allergies (Verified Allergy, Unknown, 10/22/06) No Known Drug Allergies (Unverified , 05/05/09) Copy Copies To 1: LORETTA THOMAS MD Discharge Summary Date of Admission Jun 13, 2021 at 18:35 Date of Discharge Discharge Date: Jun 14, 2021 Discharge Time: 12:51 Admission Diagnosis Acute methamphetamine intoxication Discharge Diagnosis (1) Methamphetamine intoxication Status: Acute (2) PNA (pneumonia) Status: Acute Qualifiers: NANETTE HEREDIA MD Jun 14, 2021 12:49
[2021-06-14 16:00] VITALS: BP 129/79
[2021-06-14 18:12] VITALS: BP 129/79
[2021-06-14] MEDS ORDERED: AZITHROMYCIN INJECTION 500 MG in NS (IVPB) 250 ML IV SCH (19:00)
[2021-06-14] MEDS ORDERED: cefTRIAXone 1,000 MG in WATER (STERILE) FOR INJECTION 10 ML IV SCH (19:00)
== END 2021-06-14 17:15 | disposition home or self-care (01) ==
LOC: EDUNIT# 17:24 → ER 17:25 → 4TH 18:35
PROVIDERS: ADMIT Internal Medicine; ATTEND Internal Medicine
DX: F15.129 Other stimulant abuse with intoxication, unspecified (principal); J18.9 Pneumonia, unspecified organism; R41.82 Altered mental status, unspecified; R53.83 Other fatigue; F17.210 Nicotine dependence, cigarettes, uncomplicated; I10 Essential (primary) hypertension; F41.9 Anxiety disorder, unspecified; F31.9 Bipolar disorder, unspecified; F20.9 Schizophrenia, unspecified; Z79.891 Long term (current) use of opiate analgesic; Z79.899 Other long term (current) drug therapy
CPT/HCPCS: 70450; 71045; 80048; 80053; 80164; 80178; 80306; 81000; 82550; 82553; 82947; 83605 ×2; 83735; 83874; 84145; 84443; 85025 ×2; 87040; 87636; 93005; 93041; 99284; G0480 ×2; 36415; 80320; 80329

== ENCOUNTER 2022-05-24 18:52 | Emergency (ER) | payer MEDICAID ==
[~2022-05-24] VITALS: Ht 177.8 cm; Wt 70.3 kg
[~2022-05-24 18:52] MED LIST changes: +LEVO750T39 PO
[2022-05-24 19:14] LABS: BASOPHILS # (AUTO) 0.1 10^3/uL (0.0-0.1); BASOPHILS % (AUTO) 1 % (0-10); EOSINOPHILS # (AUTO) 0.3 10^3/uL (0.0-0.3); EOSINOPHILS % (AUTO) 4 % (0-10); HEMATOCRIT 45 % (40-54); HEMOGLOBIN 15.4 g/dL (13.3-17.7); LYMPHOCYTES # (AUTO) 2.5 10^3/uL (1.0-4.0); LYMPHOCYTES % (AUTO) 28 % (12-44); MEAN CORPUSCULAR HEMOGLOBIN 30 pg (25-34); MEAN CORPUSCULAR HGB CONC 34 g/dL (32-36); MEAN CORPUSCULAR VOLUME 89 fL (80-99); MEAN PLATELET VOLUME 9.1 fL (9.0-12.2); MONOCYTES # (AUTO) 1.2 10^3/uL (0.0-1.0); MONOCYTES % (AUTO) 13 % (0-12); NEUTROPHILS # (AUTO) 4.7 10^3/uL (1.8-7.8); NEUTROPHILS % (AUTO) 54 % (42-75); PLATELET COUNT 319 10^3/uL (130-400); WHITE BLOOD COUNT 8.8 10^3/uL (4.3-11.0)
[2022-05-24 19:41] LABS: ALANINE AMINOTRANSFERASE 24 U/L (0-55); ALBUMIN 3.7 GM/DL (3.2-4.5); ALKALINE PHOSPHATASE 109 U/L (40-136); BILIRUBIN,TOTAL 0.4 MG/DL (0.1-1.0); BUN/CREATININE RATIO 11; CALCIUM 8.9 MG/DL (8.5-10.1); CARBON DIOXIDE 21 MMOL/L (21-32); CHLORIDE 109 MMOL/L (98-107); GFR ESTIMATED 121; GLUCOSE 94 MG/DL (70-105); MAGNESIUM 2.1 MG/DL (1.6-2.4); POTASSIUM 3.5 MMOL/L (3.6-5.0); SODIUM 140 MMOL/L (135-145); TOTAL PROTEIN 5.8 GM/DL (6.4-8.2)
[2022-05-24 19:48] LABS: ACETAMINOPHEN < 10 UG/ML (10-30)
--- NOTE | 2022-05-24 20:12 | ED General ---
General Chief Complaint: General Problems/Pain Stated Complaint: [facility] Nursing Triage Note: PT TO ROOM BY [facility]. EMS REPORTS PT HAS BEEN HOMELESS FOR 3 WEEKS, HAS NOT TAKEN HIS MEDS, HAS NOT EATEN A MEAL FOR TWO DAYS, AND HAS HAD NOTHING TO DRINK TODAY. EMS REPORTS PT MADE THE STATEMENT "I'M NOT SLEEPING ON THE STREET TONIGHT, I'M GOING TO THE ER." ON ARRIVAL PT STATES HE "JUST DOESNT FEEL GOOD." PT DECLINES DRUG USE BUT STATES "SOMEONE SHOT SOMETHING INTO HIS ARM AND DOESNT KNOW WHAT IT WAS." Source of Information: Patient, EMS, Old Records History of Present Illness Date Seen by Provider: May 24, 2022 Time Seen by Provider: 19:59 Initial Comments PT ARRIVES VIA EMS FROM A LOCAL PARK PT CALLED EMS BECAUSE HE IS HOMELESS --STATES HE HAS BEEN SLEEPING ON THE STREETS FOR THE LAST 3 WEEKS, AND HE DIDN'T WANT TO SLEEP ON THE STREET TONIGHT AND TO TAKE HIM TO ER SO HE DIDN'T HAVE TO SLEEP ON THE STREET. PT HAS NO SYMPTOMS OF ANY KIND, OTHER THAN HE IS TIRED AND HUNGRY PT HAS BEEN HOMELESS OFF AND ON FOR A LONG TIME, BUT HAS BEEN SLEEPING ON THE STREETS FOR THE LAST 3 WEEKS STRAIGHT STATES HE HASN'T EATEN FOR 2 DAYS AND HAS NOT BEEN TAKING ANY OF HIS PSYCH MEDICATIONS FOR UNKNOWN LENGTH OF TIME. PT WITH LONGSTANDING IV DRUG USE-STATES "SOMEONE SHOT SOMETHING UP IN MY ARM" BUT DOESN'T KNOW WHAT, WHO, OR WHEN PCP: [facility] [place], BUT NEVER GOES THERE Allergies and Home Medications Allergies Coded Allergies: NKANo Known Allergies (Verified Allergy, Unknown, 10/22/06) No Known Drug Allergies (Unverified , 05/05/09) Patient Home Medication List Albuterol Sulfate (Proair Hfa) 8.5 Gm Hfa.aer.ad, 8.5 GM IH Q4H PRN for WHEEZING Prescribed by: DEL HAMMER on 10/17/15 1245 Benztropine Mesylate (Cogentin Tablet) 1 Mg Tab, 1 MG PO DAILY, (Reported) Entered as Reported by: LESA PERRY on 05/08/141913 Chlorphen/Phenyleph/Ibuprofen (Advil Allergy-Congest Rlf Tab) 1 Each Tablet, 1 EACH PO Q4H PRN for CONGESTION Prescribed by: DEL HAMMER on 10/17/15 1245 Docusate Sodium (Doc-Q-Lace) 100 Mg Capsule, 100 MG PO DAILY, (Reported) Entered as Reported by: CATRACHO MICHEL on 07/18/15 1104 Haloperidol Decanoate (Haloperidol Decanoate) 100 Mg/1 Ml Vial, 100 MG IM EVERY 28 DAYS, (Reported) Entered as Reported by: CATRACHO MICHEL on 07/18/15 1104 Hydrocodone/Acetaminophen (Hydrocodone/Acetaminophen 5 MG/325 MG TAB) 1 Each Tablet, 1 EACH PO Q4H PRN for PAIN Prescribed by: DEL HAMMER on 11/01/15 1742 Levofloxacin (Levofloxacin) 750 Mg Tablet, 750 MG PO DAILY Prescribed by: NANETTE HEREDIA on 06/14/21 1131 [place] Carbonate ([place] Carbonate) 300 Mg Capsule, 600 MG PO BID, (Reported) Entered as Reported by: CATRACHO MICHEL on 07/18/15 1105 Melatonin/Pyridoxine (Melatonin 3 mg Tablet) 1 Each Tablet, 6 MG PO HS, (Reported) Entered as Reported by: CATRACHO MIHCEL on 07/18/15 1104 Ondansetron (Zofran Odt) 8 Mg Tab.rapdis, 8 MG PO Q6H PRN for NAUSEA/VOMITING Prescribed by: DEL HAMMER on 12/19/15 1159 Quetiapine Fumarate (Quetiapine Fumarate) 300 Mg Tablet, 600 MG PO HS, (Reported) Entered as Reported by: CATRACHO MICHEL on 07/18/15 1104 Past Rvpolpp-Jnwdve-Dvsgrd Hx Immunizations Up To Date Tetanus Booster (TDap): Unknown PED Vaccines UTD: Yes Seasonal Allergies Seasonal Allergies: No Past Medical History Surgeries: Yes (CHIN REPAIR) Respiratory: No Currently Using CPAP: No Currently Using BIPAP: No Cardiac: Yes Hypertension Neurological: No Reproductive Disorders: No Gastrointestinal: Yes Hepatitis Musculoskeletal: No Endocrine: No Cancer: No Psychosocial: Yes (h/o psych disorders- refuses questioning; SUBSTANCE ABUSE) Anxiety, Bipolar, Schizophrenia, Depression Integumentary: No Blood Disorders: Yes (HEPATITIS) Adverse Reaction/Blood Tranf: No Family Medical History Patient reports no known family medical history. Cancer, Psychiatric Problems Physical Exam Vital Signs Vital Signs - First Documented 05/24/22 18:52 Temp 36.8 Pulse 83 Resp 16 B/P (MAP) 125/95 (105) Pulse Ox 99 Capillary Refill : Height, Weight, BMI Height: 5'10" Weight: 170lbs. oz. 77.861978gk; 22.00 BMI Method:Estimated Progress/Results/Core Measures Suspected Sepsis SIRS Temperature: Pulse: 83 Respiratory Rate: 16 Laboratory Tests 05/24/22 19:00: White Blood Count 8.8 Blood Pressure 125 /95 Mean: 105 Laboratory Tests 05/24/22 19:00: Creatinine 0.80, Platelet Count 319, Total Bilirubin 0.4 Results/Orders Lab Results Laboratory Tests Test 05/24/22 19:00 05/24/22 19:23 Range/Units White Blood Count 8.8 4.3-11.0 10^3/uL Red Blood Count 5.08 4.30-5.52 10^6/uL Hemoglobin 15.4 13.3-17.7 g/dL Hematocrit 45 40-54 % Mean Corpuscular Volume 89 80-99 fL Mean Corpuscular Hemoglobin 30 25-34 pg Mean Corpuscular Hemoglobin Concent 34 32-36 g/dL Red Cell Distribution Width 13.0 10.0-14.5 % Platelet Count 319 130-400 10^3/uL Mean Platelet Volume 9.1 9.0-12.2 fL Immature Granulocyte % (Auto) 0 % Neutrophils (%) (Auto) 54 42-75 % Lymphocytes (%) (Auto) 28 12-44 % Monocytes (%) (Auto) 13 H 0-12 % Eosinophils (%) (Auto) 4 0-10 % Basophils (%) (Auto) 1 0-10 % Neutrophils # (Auto) 4.7 1.8-7.8 10^3/uL Lymphocytes # (Auto) 2.5 1.0-4.0 10^3/uL Monocytes # (Auto) 1.2 H 0.0-1.0 10^3/uL Eosinophils # (Auto) 0.3 0.0-0.3 10^3/uL Basophils # (Auto) 0.1 0.0-0.1 10^3/uL Immature Granulocyte # (Auto) 0.0 0.0-0.1 10^3/uL Sodium Level 140 135-145 MMOL/L Potassium Level 3.5 L 3.6-5.0 MMOL/L Chloride Level 109 H 98-107 MMOL/L Carbon Dioxide Level 21 21-32 MMOL/L Anion Gap 10 5-14 MMOL/L Blood Urea Nitrogen 9 7-18 MG/DL Creatinine 0.80 0.60-1.30 MG/DL Estimat Glomerular Filtration Rate 121 BUN/Creatinine Ratio 11 Glucose Level 94 70-105 MG/DL Calcium Level 8.9 8.5-10.1 MG/DL Corrected Calcium 9.1 8.5-10.1 MG/DL Magnesium Level 2.1 1.6-2.4 MG/DL Total Bilirubin 0.4 0.1-1.0 MG/DL Aspartate Amino Transf (AST/SGOT) 15 5-34 U/L Alanine Aminotransferase (ALT/SGPT) 24 0-55 U/L Alkaline Phosphatase 109 40-136 U/L Total Protein 5.8 L 6.4-8.2 GM/DL Albumin 3.7 3.2-4.5 GM/DL Acetaminophen Level < 10 L 10-30 UG/ML Serum Alcohol < 10 <10 MG/DL SARS-CoV-2 RNA (RT-PCR) Detected H Not Detecte My Orders Orders - COLBY WALLER DO Ed Iv/Invasive Line Start (05/24/22 18:59) Monitor-Rhythm Ecg Trace Only (05/24/22 18:59) Acetaminophen (05/24/22 18:59) Alcohol (05/24/22 18:59) Cbc With Automated Diff (05/24/22 18:59) Comprehensive Metabolic Panel (05/24/22 18:59) Drug Screen Stat (Urine) (05/24/22 18:59) Magnesium (05/24/22 18:59) Ua Culture If Indicated (05/24/22 18:59) Covid 19 Inhouse Test (05/24/22 18:59) Isolation Central Supply Req (05/24/22 18:59) Vital Signs/I&O 05/24/22 18:52 Temp 36.8 Pulse 83 Resp 16 B/P (MAP) 125/95 (105) Pulse Ox 99 Capillary Refill : Blood Pressure Mean: 105 Progress Note : Progress Note NO SYMPTOMS OF ANY KIND DURING ER STAY VITALS NORMAL NO COUGH NO DYSPNEA NO HYPOXIA NO FEVER NO GI SYMPTOMS PT REFUSES TO ATTEMPT TO GIVE URINE SPECIMEN AND REFUSES CATH. PT IS NOT A CANDIDATE FOR ANY COVID TREATMENT, HE IS NOT HAVING ANY SPECIFIC COVID SYMPTOMS, AND ONSET OF ILLNESS IS UNKNOWN, AND NO OTHER CO-MORBIDITIES THAT WARRANT TREATMENT. Departure Impression Primary Impression: Homeless Additional Impression: COVID-19 virus infection Disposition: 01 HOME, SELF-CARE Condition: Stable Departure-Patient Inst. Decision time for Depature: 20:10 Referrals: [facility] Patient Instructions: COVID-19 ED, Preventing the Spread of an Infectious Disease Add. Discharge Instructions: LOTS OF FLUIDS--WATER, AND GATORADE, CLEAR JUICES, ETC. TYLENOL 1 GRAM PLUS MOTRIN 600 MG 3-4 TIMES A DAY FOR PAIN OR FEVER FOLLOW UP WITH [facility] FOR FURTHER CARE QUARANTINE FOR 10 DAYS AND WEAR MASK AT ALL TIMES All discharge instructions reviewed with patient and/or family. Voiced understanding. COLBY WALLER DO May 24, 2022 20:12
[2022-05-25 00:10] VITALS: BP 131/85
== END 2022-05-24 20:32 | disposition home or self-care (01) ==
LOC: EDUNIT# 18:52 → ER 18:53
DX: U07.1 COVID-19 (principal); Z59.00 Homelessness unspecified; Z28.310 Unvaccinated for COVID-19
CPT/HCPCS: 80053; 83735; 85025; 87636; 99283; G0480 ×2; 36415; 80320; 80329